=== PATIENT | female | born 1970 ===

== ENCOUNTER → 2018-08-12 21:29 | Outpatient (REF) | payer OTHER, SELFPAY ==
[2018-08-13 04:35] LABS: Free T4, Direct Thyroxine 1.71 ng/dL (0.78-2.19)
[2018-08-13 05:52] LABS: Free T3, Triiodothyronine Free 3.07 pg/mL (2.77-5.27)
[2018-08-13 05:53] LABS: Thyroid Stimulating Hormone 1.13 uIU/mL (0.47-4.68)
== END ==
LOC: LAB 21:29
PROVIDERS: Visit Provider Naturopath
DX: E03.9 Hypothyroidism, unspecified (principal)
CPT/HCPCS: 84439; 84443; 84481